=== PATIENT | female | born 1930 | race Caucasian/White ===

== ENCOUNTER → 2016-07-23 | Outpatient (CLI) | payer OTHER, MEDICARE ==
[~2016-07-23] MED LIST: ASPIRIN EC81 M1; CALTRATE 600 +1 EACH; DIAZEPAM 5 MG5 M1 PO; FISH OIL 1,0001 EAC5; FOSAMAX 70 MG T70 M1; HYDROCHLOROTHIA25 M2 PO; IRON; IRON325 PO; K-DUR 20 MEQ T20 MEQ; LISINOPRIL20 MG PO; LISINOPRIL40 MG; LORTABELXR PO; PAXIL10 MG; PRAVACHOL40 MG PO; RA CENTRAL VIT; TUMS PO; VITAMIN B-12500 MCG; VITAMIN D1000 UNI1 PO; VITAMIN E400 UNIT; VITAMINC500; [UNRECOGNIZED DRUG - OTHER]
== END ==
LOC: RAD 15:59
DX: K44.9 Diaphragmatic hernia without obstruction or gangrene (principal)

== ENCOUNTER → 2016-08-14 | Outpatient (CLI) | payer OTHER, MEDICARE | LOC: RAD 16:15 | DX: R05 Cough (principal) ==

== ENCOUNTER → 2016-11-18 | Outpatient (CLI) | payer OTHER, MEDICARE | LOC: RAD 11:55 | DX: R06.09 Other forms of dyspnea (principal) ==

== ENCOUNTER → 2018-01-22 | Outpatient (CLI) | payer OTHER, MEDICARE ==
[2018-01-22 11:20] VITALS: BP 137/74
[2018-01-22 13:25] VITALS: BP 190/85
== END ==
LOC: OPONC 01-20 00:27
DX: D50.0 Iron deficiency anemia secondary to blood loss (chronic) (principal); N18.2 Chronic kidney disease, stage 2 (mild)
CPT/HCPCS: 95000

== ENCOUNTER → 2018-01-29 | Outpatient (CLI) | payer OTHER, MEDICARE ==
[2018-01-29 11:30] VITALS: BP 181/78
[2018-01-29 13:10] VITALS: BP 196/85
== END ==
LOC: OPONC 01-28 06:22
DX: D50.0 Iron deficiency anemia secondary to blood loss (chronic) (principal); N18.2 Chronic kidney disease, stage 2 (mild)
CPT/HCPCS: 95000

== ENCOUNTER 2018-04-06 20:17 | Inpatient (IN) | payer OTHER, MEDICARE ==
[~2018-04-06] VITALS: Ht 165.1 cm; Wt 70.3 kg
--- NOTE | ~2018-04-06 | D ---
[facility] [place] [place] [address] DISCHARGE SUMMARY Name: SALVADOR JAIN Room #: 220-P ADM IN M.R.#: [id number] Admission: 04/06/18 Attend Phys: Tj Da Silva MD Discharge: Date of : 28 Report #: [id number] THIS REPORT FOR: //name// CC: Ion Da Silva [facility] DATE OF SERVICE: 04/14/2018 SUMMARY OF HISTORY AND PHYSICAL: The patient had food bolus get stuck in her throat, and she was given the Heimlich maneuver by her family who witnessed the event. She had a similar episode of the food bolus becoming stuck a week previously, but was able to clear it without requiring help from another person. For these reasons, she was brought to the Emergency Room and admission was arranged. SUMMARY OF HOSPITAL COURSE: Initially, she was mildly hypoxic in the Emergency Room, and there was a concern about pneumonia. She was placed on levofloxacin empirically. The hypoxia, resolved. She was seen in GI consultation and an EGD was performed that revealed distal esophageal stricture that was dilated with a 51-[place] Savary dilator. She was also found to have a large hiatal hernia as well as gastritis. After this procedure, she had no further difficulty swallowing. There were mild abnormalities seen on her video swallow. She was hypertensive, her hydrochlorothiazide had been discontinued on admission, and amlodipine 2.5 mg was added for blood pressure control. Over the next several days, she developed an ileus with nausea and vomiting. The amlodipine was discontinued, metoclopramide 5 mg IV every 6 hours was started and well tolerated, and the ileus slowly resolved. Abdominal distention that was slightly firm developed with the ileus and along with this decreased high pitch bowel sounds. The distention improved dramatically, became soft, and bowel sounds returned to normal over several days. On the day before discharge, she ate a normal diet and cleaned her plate without discomfort. She passed plenty of gas, and had a normal bowel movement with loose stool surrounding it. She was found to have a mild cognitive impairment, but by my Speech Therapy, felt to be within the broad range of normal for her age. Note was made that she was working the [employer] at the time of the speech therapy evaluation. She was found to have been taking Valium/diazepam 5 mg every morning on a regular basis from Dr. Ion Larsen, her psychiatrist, and [address] [address] DISCHARGE SUMMARY Name: SALVADOR JAIN Room #: 220-P [facility]#: [id number] Admission: 04/06/18 Attend Phys: Tj Da Silva MD Discharge: Date of : 29 Report #: [id number] apparently had been taking this medication for quite some time. A note was made that she obtained this medication at the [facility] at [address] [place] [address]. All of her other medications she gets from the [facility] at [facility] and [place], [place]. When seen in the office, frequently she is not taking her antihypertensive and cholesterol medications accurately, often missing some. The diazepam is for anxiety. Therefore, the dose was reduced from 5 mg in the morning to 2.5 mg in this morning. The patient seemed to tolerate this dose reduction without uncovering anxiety symptoms. She was noted to have low potassium and low magnesium. These both took several days to replace. LABORATORY DATA: Potassium was low at 3.4, and replaced. Magnesium was low at 1.7 and after 3 grams intravenously normalized at 2.1. Creatinine 0.8 and EGFR remained between 52 and 68. Iron was low at 28 and percent saturation low at 11. Drug screen showed benzodiazepines -- the diazepam she was taking, and opiates -- she had been given IV fentanyl in the Emergency Room, but no other unexpected drugs were seen. Admitting WBCs were 7.2 thousand, hemoglobin 12.4, hematocrit 38.0, and platelets 184,000. Ferritin was normal at 200 213, folate normal at 19.5 and vitamin B12 normal at 347. Methylmalonic acid normal at 193. Biopsies of the stomach at the time of EGD were negative for H. pylori, negative for intestinal metaplasia or atrophy, and showed mild chronic active gastritis. CT scan of the soft tissue of the neck without contrast was negative for presence of foreign body. CT scan of the chest without contrast showed coronary artery calcifications, mild aortic calcification, also a large hiatal hernia. There were no infiltrates or evidence of aspiration. Left upper lobe anterior pleural parenchymal fibrosis was present that was compatible with her history of radiation therapy for her breast cancer. The left breast had been removed. Possibility of liver cysts was also raised. KUB showed a generalized ileus, and serial studies showed improvement. Chest x-ray showed surgical clips over the left breast and the axilla and remained clear otherwise. Video swallow showed mildly impaired oral phase and mildly impaired pharyngeal phase with the barium pill becoming momentarily lodged in the vallecula and the suggestion that the choking episodes may have been from its timing of the swallow in the presence of distraction. No aspiration or penetration was seen. [facility] [address] [place] [address] DISCHARGE SUMMARY Name: SALVADOR JAIN Room #: 220-P [facility] IN [facility]#: [id number] Admission: 04/06/18 Attend Phys: Tj Da Silva MD Discharge: Date of : 29 Report #: [id number] DISCHARGE DIAGNOSES: 1. Dysphagia with food bolus impaction caused by distal esophageal stricture. 2. Satisfactory dilation of the distal esophageal stricture and the patient was able to eat without difficulty afterwards. 3. Gastritis and large hiatal hernia seen on esophagogastroduodenoscopy. 4. Ileus developed after the institution of low-dose amlodipine, and resolved with discontinuation of the amlodipine, administration of metoclopramide, and replacement of potassium and magnesium. 5. Mild cognitive impairment broadly, but within the broad range of normal according to speech therapy evaluation. 6. Anxiety, treated chronically for years with 5 mg of diazepam every morning, seemed to be adequately controlled with dose reduction to 2.5 mg every morning. 7. Asymptomatic coronary artery disease -- coronary artery calcifications seen on CT scan of the chest. 8. Left upper lobe pulmonary fibrosis seen as expected from radiation therapy. 9. Left mastectomy for breast cancer in the distant past. 10. Minimal dysphagia for which mild interventions are recommended. 11. Hyperlipidemia. 12. Chronic iron deficiency anemia that is stable. 13. Chronic difficulties with medication compliance seen over the course of years on office visits. 14. History of diverticulitis. 15. History of hemorrhoids. 16. Hypertension. 17. Low vitamin D. 18. Other medical problems as in the history and physical. PLAN: She is transferred to [facility] for strengthening and therapies. Speech Therapy recommendations are to have a soft diet with thin liquids, sit upright while eating and drinking, eat slowly, sips between bites, limit distractions while eating and drinking, and to refrain from talking while eating. MEDICATIONS: Metoclopramide 5 mg before meals and at bedtimes 4 times daily for 1 week, then before breakfast and supper for a week and then to be discontinued. Lisinopril 20 mg twice daily. Diazepam 2.5 mg every morning. Bisacodyl 10 mg suppositories twice daily as needed. MiraLax 17 grams twice daily as needed. Pantoprazole 40 mg every morning at 7:00. She is not to take her iron supplement until GI tract function normalized. She [facility] [address] [place] [address] DISCHARGE SUMMARY Name: SALVADOR JAIN Room #: 220-P [facility] IN [facility]#: [id number] Admission: 04/06/18 Attend Phys: Tj Da Silva MD Discharge: Date of : 29 Report #: [id number] can resume her pravastatin 40 mg daily. She is to see me in the office in 2 to 4 weeks. By: [id number] Mario Maldonado MD /nt
--- NOTE | ~2018-04-06 | H ---
[facility] [place] [address] HISTORY AND PHYSICAL Name: SALVADOR JAIN Room #: 355-P ADM IN M.R.#: [id number] Admission: 04/06/18 Attend Phys: Tj Da Silva MD Discharge: Date of : 29 Report #: [id number] THIS REPORT FOR: //name// CC: Tj Larsen MD [address], [place] [address] DATE OF SERVICE: 04/07/2018 CHIEF COMPLAINT: Choking on food. HISTORY OF PRESENT ILLNESS: Information was obtained from the patient and from the medical record. She had been eating fondue, pieces of bread dipped in melted cheese, when she began to choke after beginning to swallow a piece. She continued to choke after sipping some water, and was unable to talk or breathe. The granddaughter came to the Emergency Room and reported that her aunt performed the Heimlich maneuver. The patient collapsed towards the floor. While on the floor, she coughed and it sounded to the witnesses like she had dislodged the food bolus that had been stuck in her throat, but the family did not actually see the piece of fondue bread come out her mouth. The patient was then able to start breathing, but by the time she arrived in the Emergency Room, the granddaughter reported that her breathing was still abnormal. There was a similar issue of choking while trying to eat a piece of steak at a restaurant several weeks ago. There was no other history of dysphagia or getting food stuck in her throat. PAST MEDICAL HISTORY: Significant for hypertension, hyperlipidemia, early cognitive dysfunction (which the patient denies), iron deficiency anemia, left mastectomy for breast cancer, mild anxiety at times, history of diverticulitis, hemorrhoids, and unclear history of anxiety. MEDICATIONS: [employer] reports she was prescribed diazepam 5 mg tablets, quantity 30 with 5 refills to take 1 at bedtime. [facility] [place] report that she fills diazepam 5mg #30 each month between the and the . since September 2016. I prescribe hydrochlorothiazide 25 mg 1 daily for high blood pressure, lisinopril 20 mg for high blood pressure, and Pravachol 40 mg #90 each on 09/21/2017, ferrous sulfate 325 mg 1 a day or 1 twice daily was recently restarted for her iron deficiency anemia, and she recieved iron infusions 01-22-18 and 01-29-18. Apparently, she has stopped taking vitamin D 5000 units daily, but my records indicate she was reminded to restart this medication. [address] [address] HISTORY AND PHYSICAL Name: JAINSALVADOR Room #: 355-P [facility] IN M.R.#: [id number] Admission: 04/06/18 Attend Phys: Tj Da Silva MD Discharge: Date of : 29 Report #: [id number] ALLERGIES: PENICILLINS. SOCIAL HISTORY: She lives alone in her own [place] She drives. She does not use cigarettes or recreational drugs, but she does use alcohol. ADDITIONAL MEDICAL PROBLEMS: On most office visits, she indicates that she is not taking her medications or cannot remember what medications she is taking and frequently gives the appearance of being noncompliant with medications, but her memory is not clear. Complete review of systems is negative except for some tenderness in the right chest wall, which she attributes to happening during the Heimlich maneuver. She denies shortness of breath, cough, stomach or urinary trouble. Denies joint pain. OBJECTIVE: HEENT: Unremarkable. Her makeup and her hair appeared neatly applied and combed. Oropharynx is unremarkable. NECK: Negative. LUNGS: Clear in both lung tapia. CARDIOVASCULAR: There are no extra heart sounds. The heart rate at times is slightly over 100, but is regular. ABDOMEN: Soft, nontender without hepatosplenomegaly or masses. EXTREMITIES: There is no swelling in the lower extremities. There are no focal neurological deficits present. VITAL SIGNS: Blood pressure this morning is 186/86, pulse ox 93 on room air, pulse is 79 and regular, respirations 14. She had just taken her antihypertensive medication. At the time of dictation, several hours later, her blood pressure is 145/59, respirations 17, pulse 79. LABORATORY DATA: Unremarkable except for minimal left shift with 79.5% segmented neutrophils. Room air blood gas in the ER showed pH 7.389, pCO2 of 32, pO2 was mildly low at 60.7. Oxygen measured saturation was low at 87.4%. At the time of dictation, a video swallow result is available. The report suggests the choking episodes were likely the result of mistiming of the swallow in the presence of distraction, in that both episodes occurred while she was eating with family or friends and safe swallowing techniques were given as well as recommendation of a mechanical soft diet with thin liquids. CT scan of the chest showed patent airways without evidence of foreign body or pneumonic infiltrate. A large hiatal hernia is present and left anterior pleural parenchymal post-radiation distribution fibrosis. Probable hepatic cysts. Soft tissue CT scan of the neck showed calcified carotid arteries, atherosclerosis. [facility] [address] [place] [address] HISTORY AND PHYSICAL Name: SALVADOR JAIN Room #: 355-P [facility] IN [facility]#: [id number] Admission: 04/06/18 Attend Phys: Tj Da Silva MD Discharge: Date of : 29 Report #: [id number] ASSESSMENT: 1. Two episodes of dysphagia and choking, one requiring the assistance of a second person to perform the Heimlich maneuver. 2. Dysphagia, video swallow by speech therapy suggesting that being distracted while eating caused her to mistime her swallow, which led to the obstruction. 3. Past history of memory trouble and cognitive dysfunction. 4. Past history of medication noncompliance felt to be caused by the cognitive and memory problems. 5. Large hiatal hernia. 6. Past history of iron deficiency anemia without source being identified on an EGD and colonoscopy at [facility], 05/05/2014. Two iron infusions were given 01-22 and 01-29-18. 7. Asymptomatic diverticulosis. 8. History of hemorrhoids without recent problems. 9. Hypertension. 10. Left mastectomy for breast cancer with subsequent radiation. 11. Past history of symptomatic chronic obstructive pulmonary disease. 12. Right lateral chest wall contusion from the Heimlich maneuver.. 13. Hypertension with elements of white coat elevation and elements of medication noncompliance/forgetting medication leading to it being high or uncontrolled. 14. Mild hypoxia with normal CT of chest 14. Other medical problems as in the history and physical above. PLAN: The patient has been admitted. We will continue IV fluids. She has been seen in Pulmonary Medicine consultation, and no acute pulmonary disease has been found at this time. Levofloxacin empricly for possible pneumonia. An EGD will be performed in the morning by the GI service. She is receiving speech therapy interventions to swallow more carefully. By: [id number] Mario Maldonado MD /nt
[2018-04-06 20:18] VITALS: BP 176/82
[2018-04-06] MEDS ORDERED: ONE-A-DAY WOMENS PO (20:27)
[2018-04-06 20:37] LABS: BE(vivo) -4.9 mmol/L (-2 to +3); HCO3 19.1 mmol/L (22.0-26.0); PCO2 32.3 mmHg (35.0-45.0); PO2 60.7 mmHg (80.0-100.0); pH 7.389 (7.360-7.450); sO2 91.4 % (92.0-98.0)
[2018-04-06 22:22] LABS: ABSOLUTE NEUTROPHILS 7.3 thou/uL (1.4-8.2); BASOPHILS 0.7 % (0.0-2.0); EOSINOPHILS 0.7 % (0.0-3.0); HEMATOCRIT 39.7 % (37.0-47.0); HEMOGLOBIN 13.5 gm/dL (12.0-15.0); LYMPHOCYTES 12.6 % (24.0-44.0); MCH 31.6 pg (26.0-34.0); MCHC 34.1 g/dL (28.0-37.0); MCV 92.7 fL (80.0-100.0); MONOCYTES 6.5 % (1.0-8.0); PLATELET COUNT 197 thou/uL (150-400); POLYS 79.5 % (36.0-66.0); RBC 4.29 mil/uL (4.20-5.00); RDW 21.4 % (10.5-14.5); WBC 9.1 thou/uL (4.0-11.0)
[2018-04-06 22:33] LABS: CALCIUM 9.3 mg/dL (8.5-10.1); CREATININE 0.8 mg/dL (0.6-1.0); POTASSIUM 3.6 mmol/L (3.5-5.1)
[2018-04-06 22:44] VITALS: BP 176/82
[2018-04-06 22:48] VITALS: BP 145/77
[2018-04-06 22:50] LABS: ANISOCYTOSIS 2+
[2018-04-06 23:13] VITALS: BP 172/96
--- NOTE | 2018-04-07 02:37 | NUR ---
Pt came up to unit approx 2300. Pt alert and oriented x4. Pt c/o pain in the ribs due to Heimlich maneuver. Dr front facer notified and new orders noted. will restart home meds and put in diet for pt. SBA to the restroom. Pt calls appropriately. No other c/o at this time. Will continue to monitor.
[2018-04-07 03:22] VITALS: BP 189/85
[2018-04-07 07:32] VITALS: BP 186/86
--- NOTE | 2018-04-07 07:47 | NUR ---
RECEIVED PT APPROX 0700. A/O. C/O RIB PAIN- PT REQUESTING STRONGER PAIN MED- PAGED DR. HARVEY- WAITING FOR CALL BACK/ORDERS. UP WITH STAND BY. SOA W/ ACTIVITY. PT RESTING IN BED AT THIS TIME. CALL LIGHT IN REACH. WILL CONT. TO MONITOR.
[2018-04-07 11:01] VITALS: BP 162/87
--- NOTE | 2018-04-07 11:52 | NUR ---
PT OFF UNIT TO VIDEO SWALLOW.
--- NOTE | 2018-04-07 12:53 | NUR ---
pt return from video swallow
--- NOTE | 2018-04-07 14:13 | NUR ---
INITIAL ASSESSMENT: SW reviewed chart and spoke with nursing. Pt was admitted from home following choking incident. Pt's dtr performed the Heimlich Maneuver. Pt choked on a piece of cheese fondue bread. Pt had video swallow earlier today. Recommendation made for pt to have a mechanical soft diet with thin liquids. GI consulted. Pt will have an EGD tomorrow per GI. SW met with pt at bedside. Introduced role of SW. Pt is alert/orientated x 4. Pt reports she lives at home alone. Pt's family is supportive and involved with pt's care. Prior to admission, pt was independent with ADLS. Pt drives and has a cane to assist with long distance ambulation. No hx of services or SNF/Rehab placement. Pt's PCP is Dr. Maldonado. Discharge plan is for pt to discharge home when medically stable. SW is following to assist as needed with discharge plannign.
[2018-04-07 14:23] VITALS: BP 145/59
[2018-04-07 18:11] VITALS: BP 181/80
[2018-04-07 20:40] VITALS: BP 161/84
--- NOTE | 2018-04-08 03:55 | NUR ---
ASSUMED CARE AT START OF SHIFT , PT RESTED WELL WITH DIFFICULTY SWALLOWING OR SOA, UP TO BATHROOM WITH STAND BY ASSIST. NSR ON PEANUT SEPARATOR , NPO FOR AM EGD.
[2018-04-08 04:44] VITALS: BP 137/83
[2018-04-08 05:36] LABS: HEMOGLOBIN 12.4 gm/dL (12.0-15.0); MCH 30.5 pg (26.0-34.0); MCHC 32.7 g/dL (28.0-37.0); MCV 93.5 fL (80.0-100.0); RBC 4.07 mil/uL (4.20-5.00); RDW 19.7 % (10.5-14.5); WBC 7.2 thou/uL (4.0-11.0)
[2018-04-08 05:53] LABS: % SATURATION 11 % (20-39); IRON 28 ug/dL (50-170); TIBC 250 ug/dL (250-450)
[2018-04-08 05:56] LABS: ALBUMIN 3.1 g/dL (3.4-5.0); CALCIUM 9.2 mg/dL (8.5-10.1); CREATININE 0.8 mg/dL (0.6-1.0); POTASSIUM 3.7 mmol/L (3.5-5.1); TOTAL BILIRUBIN 0.5 mg/dL (<0.1-1.0)
[2018-04-08 06:15] LABS: FOLIC ACID 19.5 ng/mL (8.6-58.9)
[2018-04-08 07:50] VITALS: BP 173/98
[2018-04-08 11:32] LABS: PROTIME 10.7 Seconds (9.3-11.4)
[2018-04-08 13:09] VITALS: BP 170/79
--- NOTE | 2018-04-08 14:27 | NUR ---
Received consult due to pt requesting HH services. LAURA reviewed chart and spoke with nursing. Pt had EGD earlier today per GI. LAURA met with pt, son and dtr at bedside to discuss post-acute needs. Pt's family states that pt may need a short-term SNF stay prior to returning to her home, where she lives independently. SW explained differences in HH v. SNF placement. LAURA provided pt with list of SNFs for review. Will need PT/OT evaluations to determine discharge needs. Pt and family are agreeable with SNF placement or HH. LAURA contacted attending physician to request PT/OT evals. SW is following to assist as needed with discharge planning.
[2018-04-08 16:00] VITALS: BP 147/65
[2018-04-08 16:50] LABS: AMP/METHAMP Negative (Negative); BARBITURATES Negative (Negative); BENZODIAZEPINES POSITIVE (Negative); COCAINE Negative (Negative); METHADONE Negative (Negative); OPIATES POSITIVE (Negative); PCP Negative (Negative)
--- NOTE | 2018-04-08 18:12 | HC ---
[facility] [place] [address] CONSULTATION Name: SUSYSALVADOR B Room #: 355-P [facility] IN .R.#: [id number] Admission: 04/06/18 Attend Phys: Tj Da Silva MD Discharge: Date of : 29 Report #: [id number] THIS REPORT FOR: //name// CC: Tj Maldonado TYPE OF REPORT: Pulmonary consultation. PRIMARY CARE PHYSICIAN: Mario Maldonado M.D. REASON FOR REFERRAL: Possible aspiration. HISTORY OF PRESENT ILLNESS: The patient is an 87-year-old white female who presents to Emergency Room following an episode of choking while eating her meal. A Pulmonary consultation was requested. The patient was previously seen by this physician about a year ago. She was diagnosed with pneumonia around August of 2016. She was in her usual state of health until yesterday evening when she was eating a dinner and she apparently choked on a piece of food. She was eating a melted cheese dip. Her daughter gave a Heimlich maneuver. She then proceeded to have a near-syncopal episode. Report suggests the patient may have a dislodged the food. The patient was then brought to the Emergency Room. CT chest was grossly unremarkable. No foreign body was noted. The patient's clinical status improved. She was no longer distressed. According to the patient, she has had a similar episode recently while eating a steak. No past history of dysphagia or esophageal disorder. Presently, she denies any dyspnea, chest pain, productive cough. PAST MEDICAL HISTORY: Notable for hypertension, history of nephrolithiasis, anemia, breast cancer and undergoing a left mastectomy and carotid artery disease. PAST SURGICAL HISTORY: Notable for tonsillectomy and also as mentioned above. ALLERGIES: PENICILLIN, reactions unknown, the patient is not sure if she is truly allergic to penicillin. HOME MEDICATIONS: Include diazepam, Zestril, Pravachol, iron supplements and hydrochlorothiazide. FAMILY HISTORY: Notable for colon cancer in her mother. Father with a CVA. They are both . [facility] [address] [place] [address] CONSULTATION Name: SUSYSALVADOR B Room #: [address] [place] [address] [place] .R.#: [id number] Admission: 04/06/18 Attend Phys: Tj Da Silva MD Discharge: Date of : 29 Report #: [id number] SOCIAL HISTORY: The patient has smoked up until 1998, smoking half a pack a day. She drinks 2 glasses of wine per week. REVIEW OF SYSTEMS: As mentioned above, otherwise 10-point system review negative. PHYSICAL EXAMINATION: GENERAL: She is awake and alert, in no apparent distress. VITAL SIGNS: Temperature is 98 degrees Fahrenheit, pulse is 80, respiratory rate is 20, blood pressure 186/86 mmHg and saturation 93% on room air. HEENT: Normocephalic and atraumatic. NECK: Supple, without any lymphadenopathy or thyromegaly. CHEST: Breath sounds are good bilaterally without any rales or wheezes. CARDIOVASCULAR: Normal S1 and S2. There is no murmur or gallop. There is no JVD. There is no carotid bruit. Pulses are 2+/4+ bilaterally. ABDOMEN: Soft and nontender. No organomegaly or masses felt. GENITOURINARY: Deferred. RECTAL: Deferred. EXTREMITIES: There is no edema, cyanosis or clubbing. RADIOLOGICAL DATA: CT chest is grossly unremarkable. Large hiatal hernia is noted. Post-radiation pulmonary fibrosis seen in the left upper lobe in the anterior segment. CT of the neck was also grossly unremarkable other than bilateral carotid artery calcifications. Video swallow shows no significant penetration or aspiration. LABORATORY DATA: Electrolytes are normal. Renal function is normal. Arterial blood gas revealed open pH 7.38, pCO2 of 32 and pO2 of 60 on room air. WBC 9100, hemoglobin 13.5 and platelets are normal. IMPRESSION: 1. Apparent choking episode in this 87-year-old white female. There is suspicion for possible aspiration. Presently, the patient is stable. CT chest shows no evidence of foreign body. It does not appear the patient has obvious aspiration of foreign body at this time. 2. Recent onset of dysphagia, choking sensation. Gastroenterology has been consulted. Video swallow noted. She may need further evaluation such as esophagram or perhaps even an esophagogastroduodenoscopy. We will defer to the Gastroenterology consultants. 3. Acute respiratory distress, resolved. 4. Past history of breast cancer, left breast, status post left mastectomy, status post radiation with mild radiation-induced pulmonary fibrosis involving the left upper lobe. 5. Anemia. 6. Hypertension. [address] [address] CONSULTATION Name: JULIANN JAINLUI Felix Room #: 355-P ADM IN M.R.#: [id number] Admission: 04/06/18 Attend Phys: Tj Da Silva MD Discharge: Date of : 29 Report #: [id number] RECOMMENDATIONS: Overall, the patient is stable from Pulmonary standpoint. We will await GI evaluation regarding a recent onset of dysphagia. Wonder whether the patient may have esophageal motility disorder versus possible stenosis or other pathology. Thank you for this consultation. <ELECTRONICALLY SIGNED> By: Amauri Campos MD 04/08/18 1812 [id number] Amauri Campos MD /nt
--- NOTE | 2018-04-08 19:12 | NUR ---
PT ALERT AND ORIENTED X4. COMPLAINING OF RIB PAIN. GIVEN PAIN MEDS X1 WITH GOOD RELIEF OF PAIN. EGD WITH DILATION DONE TODAY. PT TOLERATING SOFT DIET FOLLOWING BUT POOR APPETITE. PT/OT/ST CONSULTED. PT'S FAMILY STATES THEY ARE WORRIED ABOUT PT RETURNING HOME. CASE MANAGEMENT CONSULTED AND MET WITH FAMILY. REPORT GIVEN TO [employer] SALESPERSON RN.
[2018-04-08 19:25] VITALS: BP 164/78
--- NOTE | 2018-04-09 02:44 | NUR ---
PATIENT IS PROGRESSING IN HER CARE PLAN. VITAL SIGNS STABLE WITH PATIENT HAVING NO COMPLAINTS OF NAUSEA. PATIENT DID COMPLAIN OF PAIN IN ABDOMEN FROM HEIMLICH MANEUVER WHICH WAS TREATED APPROPRIATELY WITH MEDICATIONS AND REPOSITIONING. PATIENT IS FULLY ORIENTED BUT FORGETFUL AT TIMES, SHE IS ABLE TO CALL APPROPRIATELY FOR NEEDS. SWALLOW PRECAUTIONS FOLLOWED WITH PATIENT SHOWING NO EVIDENCE OF ASPIRATION. UP MANY TIMES TO RESTROOM WITH STANDBY ASSISTANCE INCIDENT FREE. PATIENT IS CONSIDERED HIGH FALL RISK. PATIENT WAS "MISERABLE" DUE TO INABILITY TO SLEEP FROM FREQUENT URINATION. NURSE RECEIVED ORDER FROM PROVIDER TO DC FLUIDS FOR NOW. CONTINUE PLAN OF CARE.
[2018-04-09 04:18] VITALS: BP 142/68
[2018-04-09 08:39] VITALS: BP 125/76
[2018-04-09 11:12] VITALS: BP 148/65
--- NOTE | 2018-04-09 13:12 | NUR ---
DISCHARGE PLANNING. PATIENT WOULD BENEFIT FROM SHORT TERM CARE HOME PLACEMENT STAY PRIOR TO DISCHARGING TO HOME. REFERRAL FAXED [facility] ADMISSIONS, VERIFIED RECEIVED. LINCOLN TO REVIEW AND NOTIFY CM ONCE COMPLETE. FOLLOWING TO ASSIST WITH DISCHARGE NEEDS. UNIT CM/SW AWARE.
--- NOTE | 2018-04-09 13:16 | NUR ---
SW reviewed chart and spoke with nursing. Awaiting PT/OT evaluations. LAURA met with pt and family at bedside. Request made for referral to be sent to [facility]. train planner to fax referral. Will fax therapy evals when available. LAURA is following to assist as needed with discharge planning.
[2018-04-09 16:24] VITALS: BP 147/88
--- NOTE | 2018-04-09 16:52 | NUR ---
report called to [facility] in [facility]. pt to have dinner then transfer down to room 220.
[2018-04-09 19:36] VITALS: BP 159/82
--- NOTE | 2018-04-10 00:50 | NUR ---
Pt A/OX4 with some forgetfulness noted but able to make needs known. Up with SBA/RW without any problems. Pt c/o pain to ribcage with movement and coughing,medicated with relief reported. Pt also medicated with Dulcolax supp at shift change with no results,given Miralax and prune juice at HS and encouraged to increase fluid intake as well as ambulate more. Pt stated she had already ambulated a few times earlier and tired to do so again at bedtime. VSS, noted to have frequency also has stress incontinence and requests to wear briefs. Fall precautions implemented;annie light within reach and bed in the lowest position. Encouraged pt to call for help as needed.
[2018-04-10 07:23] VITALS: BP 152/81
[2018-04-10 19:09] VITALS: BP 141/70
--- NOTE | 2018-04-10 19:33 | NUR ---
ASSUMED CARE OF PATIENT AT 0715, PATIENT ALERT AND CAN BE FORGETFUL. PATIENT C/O PAIN WITH BILATERAL RIB AREAS, PATIENT TOOK HYDROCODONE 1 TABLET GIVEN THIS SHIFT. PATIENT C/O CONSTIPATION, RECEIVED MIRALAX, PRUNE JUICE AND DULCOLAX SUPP, ON NIGHTSHIFT NO RESULTS. DR NUÑEZ HERE INFORMED DR NUÑEZ OF CONSTIPATION RECEIVED ORDER FOR LACTULOSE EVERY 2 HOURS UNTIL BOWEL MOVEMENT. PATIENT HAS HAD MULTIPLE STOOLS AFTER 2 DOSES OF LACTULOSE. PATIENT HAS RIGHT FOREARM IV IN PLACE, FLUSHED WITH NS AND REMAINS PATIENT. PATIENT HAS BRUISING TO RIB AREA. ORDER ALSO RECEIVED TO WALK PATIENT BID. WILL CONTINUE TO MONITOR.
--- NOTE | 2018-04-11 04:39 | NUR ---
ASSUMED CARE OF PATIENT AT 1900. ASSESSMENT COMPLETED AT 2144 AND IS DOCUMENTED. LBM: 04/10 WITH A LOT OF LIQUID STOOLS. PRN NORCO GIVE FOR C/O RIB PAIN WITH DESIRED EFFECT ACHIEVED. PT HAS BRUISING ON RIBS AND STATES THEY ARE TTP. PIV IN RIGHT FA PATENT AND SALINE LOCKED. VSS THROUGHOUT SHIFT. PT CURRENTLY RESTING PEACEFULLY IN BED IN NO ACUTE DISTRESS. ABLE TO CALL OUT APPROPRIATELY, BUT DOES NEED REMINDED AT TIMES. CALL LIGHT AND PERSONAL ITEMS WITHIN REACH. BED LOCKED AND IN LOWEST POSITION. WCTM.
[2018-04-11 06:29] VITALS: BP 135/70
[2018-04-11 07:55] VITALS: BP 134/67
[2018-04-11 13:02] LABS: HEMATOCRIT 43.9 % (37.0-47.0); HEMOGLOBIN 14.7 gm/dL (12.0-15.0); MCH 31.7 pg (26.0-34.0); MCHC 33.5 g/dL (28.0-37.0); MCV 94.7 fL (80.0-100.0); RBC 4.63 mil/uL (4.20-5.00); RDW 17.2 % (10.5-14.5); WBC 10.8 thou/uL (4.0-11.0)
[2018-04-11 13:19] LABS: ALBUMIN 3.7 g/dL (3.4-5.0); CALCIUM 9.6 mg/dL (8.5-10.1); CREATININE 1.1 mg/dL (0.6-1.0); POTASSIUM 3.8 mmol/L (3.5-5.1); TOTAL BILIRUBIN 0.3 mg/dL (<0.1-1.0); TOTAL PROTEIN 7.8 g/dL (6.4-8.2)
--- NOTE | 2018-04-11 14:20 | NUR ---
ASSUMED CARE OF PATIENT THIS MORNING. PATIENT IS ALERT AND ORIENTED X4 WITH SOME FORGETFULNESS AT TIMES. PATIENT IS UP WITH STANDBY ASSISTANCE TO BATHROOM. PT AMBULATES VERY WELL NO COMPLAINTS OF PAIN. SHE WAS ASSESSED THIS MORNING. NO ABNORMAL ASSESSMENT FINDINGS. HER LAST BOWEL MOVEMENT WAS YESTERDAY. SHE COMPLAINS OF FEELING CONSTIPATED AND PASSING FLATUS. NO BOWEL MOVEMENT TODAY, SHE RECEIVED LACTULOSE TO HELP WITH THE CONSTIPATION. SHE HAS A RIGHT FOREARM SALINE LOCKED IV WHICH IS PATENT. FALL PRECAUTIONS ARE IN PLACE. PATIENT CALLS OUT APPROPRIATELY. CALL LIGHT WITHIN REACH.
[2018-04-11 20:15] VITALS: BP 132/70
--- NOTE | 2018-04-12 04:46 | NUR ---
ASSUMED CARE OF PATIENT AT 1900. ASSESSMENT COMPLETED AT 5 AND IS DOCUMENTED. EXPIRATORY WHEEZES. BS HYPERACTIVE. PRN NORCO GIVEN FOR C/O RIB PAIN WITH DESIRED EFFECT ACHIEVED. KUB ORDERED BY THIS SHIFT. KUB IMPRESSION WAS GENERALIZED GASEOUS BOW DISTENTION SUGGESTIVE OF AN ILEUS. NEW ORDER FOR REGLAN IV Q6H RECEIVED. F/U KUB AND CXR IN AM. PT IS CURRENTLY SLEEPING SOUNDLY IN BED IN NO ACUTE DISTRESS. ABLE TO VERBALIZE NEEDS APPROPRIATELY. CALL LIGHT AND PERSONAL ITEMS WITHIN REACH. BED LOCKED AND IN LOWEST POSITION. WCTM.
[2018-04-12 05:32] LABS: HEMATOCRIT 42.2 % (37.0-47.0); HEMOGLOBIN 13.7 gm/dL (12.0-15.0); MCH 30.4 pg (26.0-34.0); MCHC 32.5 g/dL (28.0-37.0); MCV 93.7 fL (80.0-100.0); RBC 4.5 mil/uL (4.20-5.00); RDW 14.9 % (10.5-14.5); WBC 12.6 thou/uL (4.0-11.0)
[2018-04-12 05:46] LABS: ALBUMIN 3.5 g/dL (3.4-5.0); CALCIUM 9.3 mg/dL (8.5-10.1); MAGNESIUM 1.7 mg/dL (1.8-2.4); POTASSIUM 3.4 mmol/L (3.5-5.1); TOTAL BILIRUBIN 0.4 mg/dL (<0.1-1.0); TOTAL PROTEIN 7.9 g/dL (6.4-8.2)
[2018-04-12 06:38] VITALS: BP 142/66
[2018-04-12 08:00] VITALS: BP 129/67
--- NOTE | 2018-04-12 10:10 | NUR ---
ASSUMED CARE OF PATIENT THIS MORNING. PATIENT IS ALERT AND ORIENTED X 4. SHE IS UP WITH STANDBY ASSISTANCE TO THE BATHROOM WITH HER WALKER. SHE WAS ASSESSED THIS MORNING AND LUNG SOUND WERE CLEAR AND DIMINISHED. SHE HAS ACTIVE BOWEL SOUNDS, LAST BOWEL MOVEMENT WAS YESTERDAY. PATIENT HAS JUST PASSING FLATUS. 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 CT SCAN WAS ALSO COMPLETED THIS MORNING, NORMAL HEART SIZE WITH POSSIBLE PULMONARY VENOUS CONGESTION, PULMONARY FIBROSIS, PRIOR LEFT MASTECTOMY AND AXILLARY LYMPH NODE DISSECTION. PATIENT IS RESTING COMFORTABLY IN BED WITH HER CALL LIGHT WITHIN REACH. SHE HAS FALL PRECAUTIONS IN PLACE. PATIENT WILL POSSIBLY BE DISCHARGED TODAY TO [facility].
--- NOTE | 2018-04-12 10:59 | NUR ---
NO BED AVAIL TODAY AT [facility]. LIKELY BED IN AM AT [facility]. IF DISCHARGED IN AM PLEASE CALL [facility] AT [phone] THEIR DROP CREW LABORER. INQUIRE IF THEY WILL TRANSPORT. IF NOT CALL [facility] AT [phone] AND ARRANGE [facility] FOR TRANSPORT TO [facility]. REQUEST [facility] FAX NUMBER TO FAX ORDERS. CHART COPIED. NOTFIY FAMILY
--- NOTE | 2018-04-12 12:26 | NUR ---
FAXED CLINICAL UPDATE TO [facility]. SPOKE WITH LINCOLN IN ADM, SHE WILL HAVE A BED AVAILABLE TOMORROW 04/13/18. DCP TO FOLLOW.
--- NOTE | 2018-04-12 14:06 | PATH ---
[facility] [address] [place] [address] PATHOLOGY RPT PROCEDURE Name: SALVADOR ESPINOZA Isidro Room #: 220-P ADM IN M.R.#: [id number] Admission: 04/06/18 Date of : 28 Discharge: Report #: [id number] Path Case #: [id number] [facility] Accession Number: [id number] . 01 Material submitted: . ANTRUM BX R/O H. PYLORI . 01 Clinical history: . Pre-OP DX: Dysphasia Post-OP DX: Dilation . 02 Diagnosis: Gastric mucosa, antrum, rule out H. pylori, endoscopic biopsy: - Mild chronic active gastritis. - Negative for intestinal metaplasia or atrophy. - Negative for Helicobacter pylori (properly controlled immunohistochemical stain performed). MBR/04/09/2018 . 02 Comment: An intensive search for Helicobacter pylori-like organisms is negative. Absence of such organisms does not entirely exclude the possibility and may be due to sampling. Other possible etiologies may include chemical gastritis, autoimmune gastritis, gastritis associated with inflammatory bowel disease. Please correlate with clinical, endoscopic, and microbiological studies if clinically indicated. (IUV:fruit and vegetable inspector; 04/09/2018) . 02 Electronically signed: . Arleth Aviles MD, Pathologist NPI- [id number] . 01 Gross description: . Received in formalin labeled "Salvador Espinoza, antrum BX," are 2 segments of ulloa soft tissue measuring 0.9 x 0.2 x 0.2 cm in aggregate dimensions and ranging from 0.4 to 0.5 cm in maximum dimension. The specimen is submitted entirely in cassette A1. (TSD; 04/08/2018) TOB/TOB . 02 Pathologist provided ICD-10: K29.50 . 02 CPT . 708299, [id number] Specimen Comment: A courtesy copy of this report has been sent to Specimen Comment: [phone], , [place] [address] PATHOLOGY RPT PROCEDURE Name: SALVADOR ESPINOZA B Room #: 220-P [facility].#: [id number] Admission: 04/06/18 Date of : 28 Discharge: Report #: [id number] Path Case #: [id number] Specimen Comment: Report sent to , and Specimen Comment: A duplicate report has been generated due to demographic updates. Performed at: [address], [place], [place] [id number] MD Ozzy Guerrero MD Phone: [phone] Performed at: [address] [id number] MD Arleth Aviles MD Phone: [phone]
--- NOTE | 2018-04-12 15:01 | NUR ---
if dc tomorrow [facility] accepting. Call Syeda at [facility] at [phone]. Alert of discharge and were to fax orders. Request transport, if they do not transport call [facility] to transport patient. Call [phone] [facility]. chart copy and alert family of transport and time.
--- NOTE | 2018-04-12 15:07 | NUR ---
I AGREE WITH NURSING ASSESSMENT DONE BY NAZ/MADI.
[2018-04-12 18:37] VITALS: BP 132/70
--- NOTE | 2018-04-13 01:06 | NUR ---
ASSUMED CARE OF PATIENT AT 190. ASSESSMENT COMPLETED AT 2116 AND IS DOCUMENTED. EXPIRATORY WHEEZES NOTED. BRUISING ON RIBS. RIGHT FOREARM PIV PATENT AND SALINE LOCKED. NS WITH 30 MEQ KCL INFUSED WITHOUT COMPLICATION. PT RECEIVING IV REGLAN PER DR ORDER. PT IS ABLE TO VOICE NEEDS APPROPRIATELY, BUT OCCASIONALLY FORGETS TO CALL OUT FOR ASSISTANCE TO BATHROOM. PT IS CURRENTLY SLEEPING SOUNDLY IN NO ACUTE DISTRESS. VSS. CALL LIGHT IN REACH. BED LOCKED AND IN LOWEST POSITION. WCTM.
[2018-04-13 05:09] LABS: MCH 31.1 pg (26.0-34.0); MCHC 33.5 g/dL (28.0-37.0); RBC 3.87 mil/uL (4.20-5.00); RDW 15.8 % (10.5-14.5); WBC 7.5 thou/uL (4.0-11.0)
[2018-04-13 05:10] LABS: PLATELET COUNT 227 thou/uL (150-400)
[2018-04-13 05:11] LABS: CALCIUM 8.6 mg/dL (8.5-10.1); CREATININE 0.9 mg/dL (0.6-1.0); MAGNESIUM 1.7 mg/dL (1.8-2.4); POTASSIUM 3.5 mmol/L (3.5-5.1)
[2018-04-13 06:04] LABS: ABSOLUTE NEUTROPHILS 4.7 thou/uL (1.4-8.2)
[2018-04-13 06:05] LABS: PLATELET ESTIMATE NORMAL
[2018-04-13 07:24] VITALS: BP 142/73
--- NOTE | 2018-04-13 15:24 | NUR ---
ASSUMED CARE AT 0700, SHIFT ASSESSMENT DONE, MEDS GIVEN, VSS. DENIES ANY NAUSEA, VOMITING, PAIN. ACCORDING TO PATIENT, SHE HAD TWO LOOSE STOOLS THIS AM, PASSING GAS. RESTING IN BED THIS AFTERNOON. FAMILY AT BEDSIDE, AWAITING FOR DISCHARGE ORDERS. WILL CONTINUE TO ASSESS AND ASSIST WITH ADLs NEEDED.
[2018-04-13 20:14] VITALS: BP 172/79
[2018-04-14 05:13] LABS: HEMATOCRIT 37.4 % (37.0-47.0); HEMOGLOBIN 12.3 gm/dL (12.0-15.0); MCH 30.6 pg (26.0-34.0); MCHC 32.9 g/dL (28.0-37.0); MCV 93.2 fL (80.0-100.0); RBC 4.01 mil/uL (4.20-5.00); RDW 14.4 % (10.5-14.5); WBC 8.1 thou/uL (4.0-11.0)
[2018-04-14 05:21] LABS: CALCIUM 8.6 mg/dL (8.5-10.1); CREATININE 0.8 mg/dL (0.6-1.0); MAGNESIUM 2.1 mg/dL (1.8-2.4); POTASSIUM 3.5 mmol/L (3.5-5.1)
--- NOTE | 2018-04-14 06:11 | NUR ---
PATIENTS CARES WERE ASSUMED AT SHIFT CHANGE. PATIENT WAS ASSESSED AND MEDS WERE PASSED. PATIENT REQUESTED SEVERAL TIMES TO POTTY THIS SHIFT. MOST OF THE TIME SHE WOULD JUST PASS GAS. HOURLY ROUNDING WAS DONE PATIENT DID APPER TO BE SLEEPING AND RESTING WELL. BED ALARM IS ON AND THE BED IS IN A LOW AND LOCKED POSITION,
[2018-04-14 07:21] VITALS: BP 157/74
[2018-04-14] MEDS ORDERED: SLOW-MAG64 M1 PO (08:21)
[2018-04-14] MEDS ORDERED: REGLAN 5 MG TAB5 MG PO (08:21)
[2018-04-14] MEDS ORDERED: PROTONIX40 M1 PO (08:21)
[2018-04-14] MEDS ORDERED: BISACODYL SUPP10 MG RECTAL (08:21)
[2018-04-14] MEDS ORDERED: VALIUM5 MG PO (08:21)
[2018-04-14] MEDS ORDERED: LISINOPRIL20 MG PO (08:21)
[2018-04-14] MEDS ORDERED: PAIN & FEVER325 MG PO (08:21)
[2018-04-14] MEDS ORDERED: MIRALAX17 GM PO (08:21)
[2018-04-14] MEDS ORDERED: KLOR-CON 1010 MEQ PO (08:21)
[2018-04-14 09:29] VITALS: BP 157/74
--- NOTE | 2018-04-14 10:08 | NUR ---
ASSUMED CARE AT 0700, SHIFT ASSESSMENT DONE, MEDS GIVEN, VSS. HAD A LIQUID BM THIS AM. ATE BREAKFAST. ORDERS RECEIVED FOR DISCHARGE. WILL CONTINUE TO ASSESS AND ASSIST WITH ADLs NEEDED.
--- NOTE | 2018-04-14 10:50 | NUR ---
PATIENT TO DC TODAY TO [facility], VS ARRANGED PICKUP TIME TO BE TODAY 1330. DP RELATED INFORMATION ON PICKUP TIME TO PATIENT AND SON. DC PAPERWORK PUT IN CHART COPY, DC PAPERWORK FAXED TO LINCOLN/ADMISSIONS AT FACILITY AND LINCOLN/ADMISSION AT [facility] SAID REPORT SHOULD BE CALLED TO [phone].
--- NOTE | 2018-04-14 12:17 | NUR ---
REPORT CALLED AND GIVEN TO ELI AT 1210
--- NOTE | 2018-04-14 13:30 | NUR ---
PATIENT LEFT AT 1310 WITH TRANSPORTRATION FROM [facility]. PERIPHERAL IV WAS TAKEN OUT.
--- NOTE | 2018-04-14 17:10 | NUR ---
Patient accepted to [facility] today. they have bed avail rec orders, dc planner internship finalized dc. Patient and family in agreement with plan
== END 2018-04-14 13:31 | DRG 392 ==
LOC: ER 20:17 → EROBS 22:10 → 3W 22:10 → SICU 04-09 17:47
PROVIDERS: Internal Medicine; Internal Medicine Gastroenterology; Nurse Practitioner; Student in an Organized Health Care Education/Training Program; ADMIT Internal Medicine
PROC: 0DB68ZX Excision of Stomach, Via Natural or Artificial Opening Endoscopic, Diagnostic (ICD-10-PCS; principal; 2018-04-08)
PROC: 0D718ZZ Dilation of Upper Esophagus, Via Natural or Artificial Opening Endoscopic (ICD-10-PCS; principal; 2018-04-08)
DX: K22.2 Esophageal obstruction (principal); K56.7 Ileus, unspecified; R13.10 Dysphagia, unspecified; T17.220A Food in pharynx causing asphyxiation, initial encounter; G31.84 Mild cognitive impairment of uncertain or unknown etiology; I10 Essential (primary) hypertension; K59.00 Constipation, unspecified; K44.9 Diaphragmatic hernia without obstruction or gangrene; K21.9 Gastro-esophageal reflux disease without esophagitis; J84.10 Pulmonary fibrosis, unspecified; R06.03 Acute respiratory distress; D50.9 Iron deficiency anemia, unspecified; K29.50 Unspecified chronic gastritis without bleeding; D72.829 Elevated white blood cell count, unspecified; R14.0 Abdominal distension (gaseous); E78.5 Hyperlipidemia, unspecified; E83.42 Hypomagnesemia; E78.00 Pure hypercholesterolemia, unspecified; E87.6 Hypokalemia; F41.9 Anxiety disorder, unspecified; Z79.899 Other long term (current) drug therapy; Z88.0 Allergy status to penicillin; Z85.3 Personal history of malignant neoplasm of breast; Z90.12 Acquired absence of left breast and nipple; Z87.891 Personal history of nicotine dependence; Z92.3 Personal history of irradiation
CPT/HCPCS: 10879; 15002; 62110; 62900; 70005

== ENCOUNTER → 2018-06-01 | Outpatient (CLI) | payer OTHER, MEDICARE ==
[~2018-06-01] MED LIST changes: +BISACODYL SUPP10 MG RECTAL; +KLOR-CON 1010 MEQ PO; +MIRALAX17 GM PO; +ONE-A-DAY WOMENS PO; +PAIN & FEVER325 MG PO; +PROTONIX40 M1 PO; +REGLAN 5 MG TAB5 MG PO; +SLOW-MAG64 M1 PO; +VALIUM5 MG PO
== END ==
LOC: MRI 13:15
DX: G20 Parkinson's disease (principal); I67.82 Cerebral ischemia

== ENCOUNTER → 2019-01-14 | Outpatient (CLI) | payer OTHER, MEDICARE | LOC: RAD 11:26 | DX: J98.4 Other disorders of lung (principal); K44.9 Diaphragmatic hernia without obstruction or gangrene ==